=== PATIENT | male | born 1995 | race Caucasian/White ===

== ENCOUNTER 2018-11-01 23:35 | Emergency (ER) | payer OTHER ==
[~2018-11-01] VITALS: Ht 167.6 cm; Wt 80.7 kg
[2018-11-01 23:35] VITALS: BP 129/67
--- NOTE | 2018-11-01 23:38 | NUR ---
TO LOBBY A/W BED, AMBULATORY
[2018-11-01] MEDS ORDERED: IBUPROFEN 800 MG TAB PO ONE (23:45)
--- NOTE | 2018-11-02 | NUR ---
23/M PRESENTS TO ED WITH FAMILY/FRIEND, C/O R SHOULDER PAIN, X3 WEEKS S/P "POPPING OUT" SHOULDER AND "POPPING IT BACK IN" SHORTLY AFTER WHILE PUSHING A GOALIE POST 3 WEEKS AGO. PT REPORTS INTERMITTENT R SHOULDER PAIN THAT HAS WORSENED X2 DAYS, WITH TINGLING DOWN R ARM. NO OBVIOUS ABNORMALITY, BRUISING OR SWELLING NOTED ON R SHOULDER, +CMS DISTALLY. DENIES MED HX OR RX. OTC IBUPROFEN WITH LITTLE RELIEF
--- NOTE | 2018-11-02 00:04 | NUR ---
X-Ray at bedside.
[2018-11-02 00:27] VITALS: BP 130/62
--- NOTE | 2018-11-02 00:27 | NUR ---
DISCHARGE PAPERS GIVEN TO PT. PT STATES 4/10 TOLLERABLE PAIN. CMS INTACT BILAT UPPER EXTREMITIES. NO DEFORMITIES. RX OF IBUPROFEN GIVEN. INSTRUCTED TO F/U WITH PCP AND WHEN TO RETURN TO ER. PT VERBALLIZED UNDERSTANDING OF DC INSTRUCTIONS. ALL QEUSTIONS ANSWERED.
== END 2018-11-02 00:27 | disposition home or self-care (01) ==
LOC: MED 23:35
DX: M25.511 Pain in right shoulder (principal); Z88.6 Allergy status to analgesic agent; Z88.0 Allergy status to penicillin
CPT/HCPCS: 73030; 99283